=== PATIENT | female | born 1980 | race Caucasian/White ===

== ENCOUNTER → 2024-10-02 08:43 | Outpatient (REF) | payer BC, SELFPAY | LOC: WDC 08:43 | PROVIDERS: ATTENDING PHYSICIAN Nurse Practitioner Family; FAMILY PHYSICIAN Nurse Practitioner Family | DX: Z12.31 Encounter for screening mammogram for malignant neoplasm of breast (principal) | CPT/HCPCS: 77063; 77067 ==

== ENCOUNTER → 2025-02-02 07:44 | Outpatient (REF) | payer BC, SELFPAY | LOC: HWRAD 07:44 | PROVIDERS: ATTENDING PHYSICIAN Nurse Practitioner Family; FAMILY PHYSICIAN Nurse Practitioner Family | DX: R59.9 Enlarged lymph nodes, unspecified (principal) | CPT/HCPCS: 76882 ==